=== PATIENT | female | born 1965 | race Caucasian/White ===

== ENCOUNTER 2021-08-27 19:54 | Inpatient (IN) ==
[2021-08-28] MEDS ORDERED: Melatonin 3 MG TABLET PO PRN (00:16)
[2021-08-28] MEDS ORDERED: Naloxone 0.4 MG/ML INJ IVP PRN (00:16)
[2021-08-28] MEDS ORDERED: D5% in Water 1,000 ML IVC PRN (00:18)
[2021-08-28] MEDS ORDERED: Dextrose 4 GM Chewable Tablets PO PRN ×2 (00:18)
[2021-08-28] MEDS ORDERED: *HR* Dextrose 50 % in Water (Syg) 50 ML SYRINGE IVP PRN (00:18)
[2021-08-28] MEDS ORDERED: Perflutren Lipid Microsphere 1.3 ML in 0.9 % Sodium Chloride 8.7 ML IVP PRN (01:21)
[2021-08-28 01:44] LABS: Hematocrit 31.2 % (35.3-44.9); Hemoglobin 9.8 g/dL (11.5-15.4); Mean Corpuscular HGB Conc 31.4 g/dL (31.6-35.5); Mean Corpuscular Hemoglobin 27.5 pg (28.0-33.3); Mean Corpuscular Volume 87.4 fL (83.0-100.0); Mean Platelet Volume 10.1 fL (9.4-12.4); Platelet Count 126 K/mcL (140-400); Red Blood Count 3.57 M/mcL (3.82-4.97); Red Cell Distribution Width 16.1 % (11.5-14.5); White Blood Count 5.3 K/mcL (4.3-11.1)
[2021-08-28 02:00] LABS: Albumin 3.6 g/dL (3.5-5.7); Albumin/Globulin Ratio 1.3 (1.1-2.2); Bilirubin,Total 0.3 mg/dL (0.3-1.0); Calcium 8.8 mg/dL (8.6-10.3); Globulin 2.7 g/dL (2.4-3.5); Magnesium 2.3 mg/dL (1.6-2.6); Potassium 5.2 mEq/L (3.5-5.1); Total Protein 6.3 g/dL (6.4-8.9)
[2021-08-28] MEDS ORDERED: Furosemide 40 MG/4 ML VIAL IVP ONE (07:33)
[2021-08-28] MEDS: Insulin LISPRO 300 UNITS/3 ML VIAL SUBQ SCH ×3 (07:44→16:33)
[2021-08-28] MEDS: Pregabalin 25 MG CAPSULE PO SCH ×3 (08:02→20:00)
[2021-08-28] MEDS: amLODIPine 5 MG TABLET PO SCH (08:02)
[2021-08-28] MEDS: Insulin DETEMIR 100 UNIT/ML X5UNITS SUBQ SCH ×2 (08:02→20:00)
[2021-08-28] MEDS ORDERED: SODIUM ZIRCONIUM CYCLOSILICATE 5 GM POWD.PACK PO SCH (09:00)
[2021-08-28 09:37] LABS: Uric Acid 7.6 mg/dL (2.3-7.6)
[2021-08-28 10:04] LABS: Hepatitis B Surface Antigen Nonreactive (Nonreactive)
[2021-08-28 10:33] LABS: Hepatitis B Core IgM Nonreactive (Nonreactive)
[2021-08-28 10:35] LABS: Hepatitis A Antibody IgM Nonreactive (Nonreactive); Hepatitis C Virus Antibody Nonreactive (Nonreactive)
[2021-08-28] MEDS: Albumin 25% 25gram/100mL 25 GM/100 ML IV.SOLN IVPB SCH ×2 (11:54→21:36)
[2021-08-28] MEDS: *HR* Heparin 5,000 UNIT/ML VIAL SQ SCH (16:36)
[2021-08-28] MEDS ORDERED: Insulin LISPRO 300 UNITS/3 ML VIAL SUBQ SCH (21:00)
[2021-08-29] MEDS ORDERED: Acetaminophen 325 MG TABLET PO ONE (00:27)
[2021-08-29] MEDS: Albumin 25% 25gram/100mL 25 GM/100 ML IV.SOLN IVPB SCH ×3 (03:30→21:00)
[2021-08-29 03:31] LABS: Basophils % 0.3 %; Eosinophils # 0.1 K/mcL (0.0-0.6); Eosinophils % 1.4 %; Hematocrit 28.7 % (35.3-44.9); Hemoglobin 8.9 g/dL (11.5-15.4); Immature Granulocytes % 0.3 % (0-4); Lymphocytes % 15.7 %; Mean Corpuscular Hemoglobin 26.8 pg (28.0-33.3); Mean Corpuscular Volume 86.4 fL (83.0-100.0); Mean Platelet Volume 10.1 fL (9.4-12.4); Monocytes # 0.6 K/mcL (0.0-1.3); Monocytes % 9.3 %; Neutrophils # 4.7 K/mcL (1.6-8.9); Platelet Count 109 K/mcL (140-400); Red Blood Count 3.32 M/mcL (3.82-4.97); Red Cell Distribution Width 16.2 % (11.5-14.5); White Blood Count 6.4 K/mcL (4.3-11.1)
[2021-08-29 03:55] LABS: Calcium 8.7 mg/dL (8.6-10.3); Magnesium 1.9 mg/dL (1.6-2.6); Phosphorous 5.1 mg/dL (2.7-4.5); Potassium 4.5 mEq/L (3.5-5.1)
[2021-08-29] MEDS: *HR* Heparin 5,000 UNIT/ML VIAL SQ SCH ×2 (05:23→17:53)
[2021-08-29] MEDS: Insulin LISPRO 300 UNITS/3 ML VIAL SUBQ SCH ×3 (07:18→16:10)
[2021-08-29] MEDS: amLODIPine 5 MG TABLET PO SCH (07:54)
[2021-08-29] MEDS: Pregabalin 25 MG CAPSULE PO SCH ×3 (07:54→20:59)
[2021-08-29] MEDS: Insulin DETEMIR 100 UNIT/ML X5UNITS SUBQ SCH ×2 (07:55→20:59)
[2021-08-29 09:18] LABS: Bacteria,Urine Few per hpf (None-Few); Bilirubin,Urine Negative (Negative); Blood,Urine Trace (Negative); Clarity,Urine Turbid (Clear); Color,Urine Light-Yellow (Yellow); Glucose,Urine (UA) 30 mg/dL (Normal); Ketones,Urine Negative (Negative); Leukocyte Esterase,Urine Large (Negative); Mucus,Urine Few per lpf (None-Few); Nitrite,Urine Negative (Negative); Protein,Urine 200 mg/dL (Neg-Trace); Specific Gravity,Urine 1.008 (1.010-1.025); Squamous Epithelial Cell,Urine Many per hpf (None-Few); Urobilinogen,Urine Normal (Normal); WBC,Urine TNTC per hpf (0-3)
[2021-08-29] MEDS: (Loxapine Succinate [Loxapine] 10 MG Capsule) PO SCH (09:38)
[2021-08-29] MEDS: Budesonide/Formoterol 80/4.5 1 PUFF INH IH SCH ×2 (10:48→20:10)
[2021-08-29] MEDS: cefTRIAXone 1,000 MG in 0.9 % Sodium Chloride 10 ML IVP SCH (17:52)
[2021-08-30 03:27] LABS: Basophils % 0.4 %; Eosinophils # 0.1 K/mcL (0.0-0.6); Eosinophils % 1.6 %; Hemoglobin 8.5 g/dL (11.5-15.4); Immature Granulocytes % 0.4 % (0-4); Lymphocytes # 0.7 K/mcL (0.6-4.6); Lymphocytes % 13.5 %; Mean Corpuscular HGB Conc 31.5 g/dL (31.6-35.5); Mean Corpuscular Volume 88.8 fL (83.0-100.0); Mean Platelet Volume 10.1 fL (9.4-12.4); Monocytes # 0.4 K/mcL (0.0-1.3); Monocytes % 7.7 %; Neutrophils # 4.2 K/mcL (1.6-8.9); Platelet Count 110 K/mcL (140-400); Red Blood Count 3.04 M/mcL (3.82-4.97); Segmented Neutrophils % 76.4 %; White Blood Count 5.5 K/mcL (4.3-11.1)
[2021-08-30 03:55] LABS: Calcium 8.8 mg/dL (8.6-10.3); Magnesium 1.8 mg/dL (1.6-2.6); Potassium 4.2 mEq/L (3.5-5.1)
[2021-08-30] MEDS: *HR* Heparin 5,000 UNIT/ML VIAL SQ SCH ×2 (05:06→18:08)
[2021-08-30] MEDS: Albumin 25% 25gram/100mL 25 GM/100 ML IV.SOLN IVPB SCH (05:06)
[2021-08-30] MEDS: Insulin LISPRO 300 UNITS/3 ML VIAL SUBQ SCH ×4 (07:28→16:58)
[2021-08-30] MEDS: Budesonide/Formoterol 80/4.5 1 PUFF INH IH SCH ×2 (07:52→20:14)
[2021-08-30] MEDS: cefTRIAXone 1,000 MG in 0.9 % Sodium Chloride 10 ML IVP SCH (08:23)
[2021-08-30] MEDS: Insulin DETEMIR 100 UNIT/ML X5UNITS SUBQ SCH ×2 (08:28→21:00)
[2021-08-30] MEDS: Pregabalin 25 MG CAPSULE PO SCH ×3 (08:28→21:00)
[2021-08-30] MEDS: amLODIPine 5 MG TABLET PO SCH (08:28)
[2021-08-30] MEDS: (Loxapine Succinate [Loxapine] 10 MG Capsule) PO SCH (08:37)
[2021-08-30] MEDS ORDERED: *HR* LORazepam 0.5 MG TABLET PO PRN (10:49)
[2021-08-30] MEDS: Perphenazine 2 MG TABLET PO SCH ×2 (12:56→21:00)
[2021-08-31 05:09] LABS: Basophils % 0.5 %; Eosinophils # 0.1 K/mcL (0.0-0.6); Eosinophils % 1.6 %; Hematocrit 28.8 % (35.3-44.9); Hemoglobin 9.2 g/dL (11.5-15.4); Immature Granulocytes % 0.2 % (0-4); Lymphocytes # 0.8 K/mcL (0.6-4.6); Lymphocytes % 14.4 %; Mean Corpuscular HGB Conc 31.9 g/dL (31.6-35.5); Mean Corpuscular Volume 87.5 fL (83.0-100.0); Mean Platelet Volume 9.9 fL (9.4-12.4); Monocytes # 0.5 K/mcL (0.0-1.3); Monocytes % 9.4 %; Neutrophils # 4.1 K/mcL (1.6-8.9); Platelet Count 100 K/mcL (140-400); Red Blood Count 3.29 M/mcL (3.82-4.97); Segmented Neutrophils % 73.9 %; White Blood Count 5.6 K/mcL (4.3-11.1)
[2021-08-31 05:12] LABS: INR 1.1; Prothrombin Time 11.9 Seconds (9.4-12.1)
[2021-08-31 05:18] LABS: Calcium 9.4 mg/dL (8.6-10.3); Potassium 4.4 mEq/L (3.5-5.1)
[2021-08-31] MEDS: *HR* Heparin 5,000 UNIT/ML VIAL SQ SCH ×2 (05:32→16:19)
[2021-08-31] MEDS: Insulin LISPRO 300 UNITS/3 ML VIAL SUBQ SCH ×3 (07:45→16:19)
[2021-08-31] MEDS: cefTRIAXone 1,000 MG in 0.9 % Sodium Chloride 10 ML IVP SCH (08:54)
[2021-08-31] MEDS: Insulin DETEMIR 100 UNIT/ML X5UNITS SUBQ SCH (08:54)
[2021-08-31] MEDS: amLODIPine 5 MG TABLET PO SCH (08:55)
[2021-08-31] MEDS: Pregabalin 25 MG CAPSULE PO SCH (08:55)
[2021-08-31] MEDS: Perphenazine 2 MG TABLET PO SCH (08:55)
[2021-08-31] MEDS: Budesonide/Formoterol 80/4.5 1 PUFF INH IH SCH (11:52)
[2021-08-31] MEDS ORDERED: Torsemide 20 MG TABLET PO SCH (13:15)
[2021-08-31 15:47] VITALS: BP 148/77; PULSE 81; TEMP 98; O2SAT 95
== END 2021-08-31 18:39 | disposition home or self-care (01) | DRG 682 ==
LOC: 2ANU → SUATTDRO 23:46
PROVIDERS: ADMIT Internal Medicine; ATTEND Hospitalist

== ENCOUNTER 2021-12-05 09:55 | Inpatient (IN) ==
[2021-12-05 11:35] LABS: Basophils % 0.4 %; Eosinophils # 0.1 K/mcL (0.0-0.6); Eosinophils % 1.5 %; Hematocrit 32.6 % (35.3-44.9); Hemoglobin 9.5 g/dL (11.5-15.4); Immature Granulocytes % 0.4 % (0-4); Immature Platelets 2.1 % (1.1-6.1); Lymphocytes # 0.6 K/mcL (0.6-4.6); Lymphocytes % 10.5 %; Mean Corpuscular HGB Conc 29.1 g/dL (31.6-35.5); Mean Corpuscular Hemoglobin 26.7 pg (28.0-33.3); Mean Corpuscular Volume 91.6 fL (83.0-100.0); Mean Platelet Volume 9.2 fL (9.4-12.4); Monocytes # 0.4 K/mcL (0.0-1.3); Monocytes % 8.1 %; Neutrophils # 4.2 K/mcL (1.6-8.9); Platelet Count 108 K/mcL (140-400); Red Blood Count 3.56 M/mcL (3.82-4.97); Red Cell Distribution Width 16.5 % (11.5-14.5); Segmented Neutrophils % 79.1 %; White Blood Count 5.3 K/mcL (4.3-11.1)
[2021-12-05] MEDS ORDERED: Furosemide 40 MG/4 ML VIAL IVP ONE (11:40)
[2021-12-05 11:57] LABS: Albumin 3.5 g/dL (3.5-5.7); Albumin/Globulin Ratio 1.3 (1.1-2.2); Bilirubin,Indirect 0.3 mg/dL (0.0-1.0); Bilirubin,Total 0.3 mg/dL (0.3-1.0); Calcium 8.2 mg/dL (8.6-10.3); Globulin 2.8 g/dL (2.4-3.5); Potassium 5.9 mEq/L (3.5-5.1); Total Protein 6.3 g/dL (6.4-8.9)
[2021-12-05] MEDS ORDERED: SODIUM ZIRCONIUM CYCLOSILICATE 5 GM POWD.PACK PO SCH (12:30)
[2021-12-05] MEDS ORDERED: Naloxone 0.4 MG/ML INJ IVP PRN (13:39)
[2021-12-05 13:41] LABS: Uric Acid 8.9 mg/dL (2.3-7.6)
[2021-12-05 13:46] LABS: Bilirubin,Urine Negative (Negative); Blood,Urine Negative (Negative); Clarity,Urine Clear (Clear); Color,Urine Colorless (Yellow); Glucose,Urine (UA) Normal (Normal); Ketones,Urine Negative (Negative); Leukocyte Esterase,Urine Moderate (Negative); Mucus,Urine Few per lpf (None-Few); Nitrite,Urine Negative (Negative); PH,Urine 6.5 pH Units (5.0-8.0); Protein,Urine 100 mg/dL (Neg-Trace); RBC,Urine 0-3 per hpf (0-3); Specific Gravity,Urine 1.008 (1.010-1.025); Urobilinogen,Urine Normal (Normal); WBC,Urine 30-50 per hpf (0-3)
[2021-12-05 13:48] LABS: Sodium, Urine 113.5 mEq/L
[2021-12-05] MEDS ORDERED: Chlorothiazide Sodium 500 MG VIAL IVP ONE (13:59)
[2021-12-05] MEDS ORDERED: *HR* Dextrose 50 % in Water (Syg) 50 ML SYRINGE IVP PRN (14:39)
[2021-12-05] MEDS ORDERED: D5% in Water 1,000 ML IVC PRN (14:39)
[2021-12-05] MEDS ORDERED: Dextrose Gel 15 GM/37.5 ML TUBE PO PRN ×2 (14:39)
[2021-12-05 15:06] LABS: VBG HCO3 23 mEq/L (21-27); VBG PCO2 49 mmHg (41-51); VBG PH 7.28 pH Units (7.32-7.42); VBG PO2 102 mmHg (25-50)
[2021-12-05] MEDS: Insulin LISPRO 300 UNITS/3 ML VIAL SUBQ SCH (18:47)
[2021-12-05] MEDS: Insulin DETEMIR 100 UNIT/ML X5UNITS SUBQ SCH (20:25)
[2021-12-05] MEDS: Furosemide 40 MG/4 ML VIAL IVP SCH (20:49)
[2021-12-05] MEDS: *HR* Heparin 5,000 UNIT/ML VIAL SQ SCH (20:49)
[2021-12-06 04:11] LABS: Basophils % 0.4 %
[2021-12-06 04:13] LABS: Eosinophils # 0.1 K/mcL (0.0-0.6); Eosinophils % 1.5 %; Hemoglobin 8.1 g/dL (11.5-15.4); Immature Granulocytes % 0.2 % (0-4); Immature Platelets 2.4 % (1.1-6.1); Lymphocytes # 0.7 K/mcL (0.6-4.6); Mean Corpuscular HGB Conc 28.9 g/dL (31.6-35.5); Mean Corpuscular Hemoglobin 26.5 pg (28.0-33.3); Mean Corpuscular Volume 91.5 fL (83.0-100.0); Monocytes # 0.5 K/mcL (0.0-1.3); Monocytes % 9.2 %; Platelet Count 108 K/mcL (140-400); Red Blood Count 3.06 M/mcL (3.82-4.97); Red Cell Distribution Width 16.3 % (11.5-14.5); Segmented Neutrophils % 76.7 %; White Blood Count 5.4 K/mcL (4.3-11.1)
[2021-12-06 04:30] LABS: Calcium 8.1 mg/dL (8.6-10.3); Potassium 5.2 mEq/L (3.5-5.1)
[2021-12-06 04:44] LABS: Neutrophils # 4.1 K/mcL (1.6-8.9)
[2021-12-06 05:11] LABS: Hepatitis B Surface Antigen Nonreactive (Nonreactive)
[2021-12-06 05:39] LABS: Hepatitis C Virus Antibody Nonreactive (Nonreactive)
[2021-12-06 05:40] LABS: Hepatitis B Core IgM Nonreactive (Nonreactive)
[2021-12-06 05:42] LABS: Hepatitis A Antibody IgM Nonreactive (Nonreactive)
[2021-12-06] MEDS: *HR* Heparin 5,000 UNIT/ML VIAL SQ SCH ×2 (06:39→16:55)
[2021-12-06] MEDS: Insulin LISPRO 300 UNITS/3 ML VIAL SUBQ SCH ×3 (07:19→16:44)
[2021-12-06] MEDS ORDERED: 0.9 % Sodium Chloride 250 ML IVC PRN (07:47)
[2021-12-06] MEDS ORDERED: 0.9 % Sodium Chloride 2,000 ML PRIME SCH (08:00)
[2021-12-06] MEDS ORDERED: Heparin 1,000 UNITS/500 mL 500 ML ONE (08:47)
[2021-12-06] MEDS ORDERED: Lidocaine/EPI 1:100k 1% 50 ML VIAL ONE (08:47)
[2021-12-06 09:31] LABS: INR 1.1; Prothrombin Time 12.7 Seconds (9.4-12.1)
[2021-12-06] MEDS ORDERED: *HR* Heparin 5,000 UNIT/ML VIAL ONE (09:45)
[2021-12-06] MEDS: Furosemide 40 MG/4 ML VIAL IVP SCH ×2 (11:13→20:33)
[2021-12-06] MEDS: hydrALAZINE 10 MG TABLET PO SCH ×3 (11:13→20:33)
[2021-12-06] MEDS: Primidone 50 MG TABLET PO SCH (11:13)
[2021-12-06] MEDS: Budesonide/Formoterol 80/4.5 1 PUFF INH IH SCH ×2 (11:21→19:58)
[2021-12-06] MEDS ORDERED: *HR* Heparin 10,000 UNIT/10 ML VIAL IV PRN (15:48)
[2021-12-06] MEDS: Piperacillin/Tazobactam 3.375 GM in 0.9 % Sodium Chloride Mini Bag 100 ML IVPB SCH (17:53)
[2021-12-06] MEDS: Insulin DETEMIR 100 UNIT/ML X5UNITS SUBQ SCH (21:56)
[2021-12-07 04:50] LABS: Red Cell Distribution Width 15.9 % (11.5-14.5)
[2021-12-07 04:52] LABS: Hematocrit 27.5 % (35.3-44.9); Immature Platelets 2.9 % (1.1-6.1); Mean Corpuscular HGB Conc 29.1 g/dL (31.6-35.5); Mean Corpuscular Hemoglobin 26.6 pg (28.0-33.3); Mean Corpuscular Volume 91.4 fL (83.0-100.0); Mean Platelet Volume 9.6 fL (9.4-12.4); Red Blood Count 3.01 M/mcL (3.82-4.97); White Blood Count 5.3 K/mcL (4.3-11.1)
[2021-12-07 05:15] LABS: Calcium 7.9 mg/dL (8.6-10.3); Potassium 4.6 mEq/L (3.5-5.1)
[2021-12-07] MEDS: Piperacillin/Tazobactam 3.375 GM in 0.9 % Sodium Chloride Mini Bag 100 ML IVPB SCH ×2 (06:46→17:56)
[2021-12-07] MEDS: *HR* Heparin 5,000 UNIT/ML VIAL SQ SCH ×2 (06:46→17:56)
[2021-12-07] MEDS: Acetaminophen 325 MG TABLET PO PRN ×2 (06:49→20:17)
[2021-12-07] MEDS ORDERED: 0.9 % Sodium Chloride 250 ML IVC PRN (07:14)
[2021-12-07] MEDS: Budesonide/Formoterol 80/4.5 1 PUFF INH IH SCH ×2 (07:34→20:54)
[2021-12-07] MEDS: Insulin LISPRO 300 UNITS/3 ML VIAL SUBQ SCH ×3 (08:54→16:04)
[2021-12-07] MEDS ORDERED: *HR* Heparin 10,000 UNIT/10 ML VIAL IV PRN (12:01)
[2021-12-07] MEDS ORDERED: Lidocaine -MPF 2% 5 ML VIAL ONE (13:37)
[2021-12-07] MEDS ORDERED: *HR* FentaNYL (PF) 100 MCG/2 ML VIAL ONE (13:40)
[2021-12-07] MEDS ORDERED: Lidocaine/EPI 1:100k 1% 50 ML VIAL ONE (13:46)
[2021-12-07] MEDS: hydrALAZINE 10 MG TABLET PO SCH ×3 (15:20→20:18)
[2021-12-07] MEDS: Primidone 50 MG TABLET PO SCH (15:45)
[2021-12-07] MEDS: allopurinoL 100 MG TABLET PO SCH (15:45)
[2021-12-07] MEDS: Furosemide 40 MG/4 ML VIAL IVP SCH ×2 (15:46→20:18)
[2021-12-07] MEDS: Insulin DETEMIR 100 UNIT/ML X5UNITS SUBQ SCH (20:18)
[2021-12-08 03:45] LABS: Calcium 8.4 mg/dL (8.6-10.3); Potassium 4.3 mEq/L (3.5-5.1)
[2021-12-08] MEDS: *HR* Heparin 5,000 UNIT/ML VIAL SQ SCH ×2 (05:36→17:10)
[2021-12-08] MEDS: Piperacillin/Tazobactam 3.375 GM in 0.9 % Sodium Chloride Mini Bag 100 ML IVPB SCH ×2 (05:37→21:34)
[2021-12-08] MEDS: allopurinoL 100 MG TABLET PO SCH (07:50)
[2021-12-08] MEDS: Insulin LISPRO 300 UNITS/3 ML VIAL SUBQ SCH ×3 (07:50→16:36)
[2021-12-08] MEDS: hydrALAZINE 10 MG TABLET PO SCH ×3 (07:50→21:34)
[2021-12-08] MEDS: Budesonide/Formoterol 80/4.5 1 PUFF INH IH SCH ×2 (07:50→20:23)
[2021-12-08] MEDS: Primidone 50 MG TABLET PO SCH (07:50)
[2021-12-08] MEDS: Furosemide 40 MG/4 ML VIAL IVP SCH ×2 (07:51→21:33)
[2021-12-08] MEDS ORDERED: 0.9 % Sodium Chloride 250 ML IVC PRN (07:53)
[2021-12-08] MEDS ORDERED: *HR* Heparin 10,000 UNIT/10 ML VIAL IV PRN (07:53)
[2021-12-08 15:04] LABS: Adenovirus F 40/41 PCR Not detected (Not detect); Astrovirus PCR Not detected (Not detect); C.difficile Toxin A/B Gene PCR Not detected (Not detect); Campylobacter by PCR Not detected (Not detect); Cryptosporidium by PCR Not detected (Not detect); Cyclospora cayetanensis PCR Not detected (Not detect); Entamoeba histolytica PCR Not detected (Not detect); Enteroaggregative E.coli(EAEC) Not detected (Not detect); Enteropathogenic E.coli(EPEC) Not detected (Not detect); Enterotoxigenic E.coli (ETEC) Not detected (Not detect); Giardia lamblia PCR Not detected (Not detect); Norovirus GI/GII PCR Not detected (Not detect); Plesiomonas shigelloides PCR Not detected (Not detect); Rotavirus A PCR Not detected (Not detect); Salmonella PCR Not detected (Not detect); Sapovirus PCR Not detected (Not detect); Shig/EnteroinvasiveE coli EIEC Not detected (Not detect); Shigalike tox-prod E coli STEC Not detected (Not detect); Vibrio PCR Not detected (Not detect); Vibrio cholerae PCR Not detected (Not detect); Yersinia enterocolitica PCR Not detected (Not detect)
[2021-12-08] MEDS: Insulin DETEMIR 100 UNIT/ML X5UNITS SUBQ SCH (21:51)
[2021-12-09 05:50] LABS: Calcium 8.4 mg/dL (8.6-10.3); Potassium 4.1 mEq/L (3.5-5.1)
[2021-12-09] MEDS: *HR* Heparin 5,000 UNIT/ML VIAL SQ SCH ×2 (06:17→17:01)
[2021-12-09] MEDS: Insulin LISPRO 300 UNITS/3 ML VIAL SUBQ SCH ×3 (07:00→16:59)
[2021-12-09] MEDS ORDERED: Vancomycin 1,750 MG in 0.9 % Sodium Chloride 250 ML IVPB SCH (08:00)
[2021-12-09] MEDS ORDERED: Vancomycin 1,500 MG/265 ML IV.SOLN IVPB ONE (09:00)
[2021-12-09] MEDS: Budesonide/Formoterol 80/4.5 1 PUFF INH IH SCH ×2 (09:26→20:27)
[2021-12-09] MEDS: Furosemide 40 MG/4 ML VIAL IVP SCH ×2 (10:37→22:41)
[2021-12-09] MEDS: allopurinoL 100 MG TABLET PO SCH (10:38)
[2021-12-09] MEDS: Primidone 50 MG TABLET PO SCH (10:38)
[2021-12-09] MEDS: hydrALAZINE 10 MG TABLET PO SCH ×3 (10:38→22:41)
[2021-12-09] MEDS: *HR* OxyCODONE Immed Rel 5 MG TABLET PO PRN ×2 (12:43→22:41)
[2021-12-09] MEDS: Acetaminophen 325 MG TABLET PO PRN (12:44)
[2021-12-09] MEDS: Piperacillin/Tazobactam 3.375 GM in 0.9 % Sodium Chloride Mini Bag 100 ML IVPB SCH ×2 (12:47→13:36)
[2021-12-09] MEDS: Insulin DETEMIR 100 UNIT/ML X5UNITS SUBQ SCH (22:42)
[2021-12-10] MEDS: Piperacillin/Tazobactam 3.375 GM in 0.9 % Sodium Chloride Mini Bag 100 ML IVPB SCH ×2 (03:14→13:59)
[2021-12-10] MEDS: *HR* Heparin 5,000 UNIT/ML VIAL SQ SCH ×2 (05:40→16:31)
[2021-12-10 06:16] LABS: Hematocrit 27.3 % (35.3-44.9); Hemoglobin 8.1 g/dL (11.5-15.4); Mean Corpuscular HGB Conc 29.7 g/dL (31.6-35.5); Mean Corpuscular Hemoglobin 26.6 pg (28.0-33.3); Mean Corpuscular Volume 89.8 fL (83.0-100.0); Mean Platelet Volume 10.6 fL (9.4-12.4); Red Blood Count 3.04 M/mcL (3.82-4.97); Red Cell Distribution Width 15.9 % (11.5-14.5); White Blood Count 7.5 K/mcL (4.3-11.1)
[2021-12-10 06:46] LABS: Calcium 8.4 mg/dL (8.6-10.3); Potassium 3.9 mEq/L (3.5-5.1)
[2021-12-10] MEDS: Insulin LISPRO 300 UNITS/3 ML VIAL SUBQ SCH ×3 (07:37→16:28)
[2021-12-10] MEDS: Budesonide/Formoterol 80/4.5 1 PUFF INH IH SCH ×2 (07:43→20:31)
[2021-12-10] MEDS: hydrALAZINE 10 MG TABLET PO SCH ×3 (08:05→20:40)
[2021-12-10] MEDS: Furosemide 40 MG/4 ML VIAL IVP SCH (08:06)
[2021-12-10] MEDS: *HR* OxyCODONE Immed Rel 5 MG TABLET PO PRN ×2 (08:06→16:31)
[2021-12-10] MEDS: allopurinoL 100 MG TABLET PO SCH (08:06)
[2021-12-10] MEDS: Primidone 50 MG TABLET PO SCH (08:08)
[2021-12-10] MEDS ORDERED: Lidocaine/EPI 1:100k 1% 50 ML VIAL ONE (10:29)
[2021-12-10] MEDS ORDERED: Heparin 1,000 UNITS/500 mL 500 ML ONE (10:29)
[2021-12-10] MEDS ORDERED: *HR* FentaNYL (PF) 100 MCG/2 ML VIAL ONE (12:08)
[2021-12-10] MEDS ORDERED: *HR* FentaNYL (PF) 100 MCG/2 ML VIAL EP ONE (12:08)
[2021-12-10] MEDS ORDERED: 0.9 % Sodium Chloride 500 ML ONE (12:09)
[2021-12-10] MEDS ORDERED: *HR* Heparin 5,000 UNIT/ML VIAL ONE (12:17)
[2021-12-10] MEDS: Insulin DETEMIR 100 UNIT/ML X5UNITS SUBQ SCH (20:40)
[2021-12-10] MEDS ORDERED: 0.9 % Sodium Chloride 250 ML IVC PRN (20:54)
[2021-12-11] MEDS ORDERED: *HR* Heparin 10,000 UNIT/10 ML VIAL IV PRN (00:01)
[2021-12-11] MEDS: Piperacillin/Tazobactam 3.375 GM in 0.9 % Sodium Chloride Mini Bag 100 ML IVPB SCH (02:18)
[2021-12-11] MEDS: *HR* Heparin 5,000 UNIT/ML VIAL SQ SCH ×2 (05:51→17:23)
[2021-12-11] MEDS: Insulin LISPRO 300 UNITS/3 ML VIAL SUBQ SCH ×3 (07:41→17:08)
[2021-12-11] MEDS: hydrALAZINE 10 MG TABLET PO SCH ×3 (07:46→20:44)
[2021-12-11] MEDS: allopurinoL 100 MG TABLET PO SCH (07:47)
[2021-12-11] MEDS: Primidone 50 MG TABLET PO SCH (07:47)
[2021-12-11] MEDS: Furosemide 40 MG TABLET PO SCH (07:47)
[2021-12-11] MEDS: *HR* OxyCODONE Immed Rel 5 MG TABLET PO PRN ×2 (07:51→16:14)
[2021-12-11] MEDS: Budesonide/Formoterol 80/4.5 1 PUFF INH IH SCH ×2 (08:01→20:31)
[2021-12-11 16:45] LABS: Calcium 8.4 mg/dL (8.6-10.3); Potassium 3.6 mEq/L (3.5-5.1)
[2021-12-11] MEDS: Doxycycline 100 MG CAPSULE PO SCH (17:23)
[2021-12-11] MEDS: Acetaminophen 325 MG TABLET PO PRN (20:44)
[2021-12-11] MEDS: Insulin DETEMIR 100 UNIT/ML X5UNITS SUBQ SCH (20:44)
[2021-12-12] MEDS: *HR* OxyCODONE Immed Rel 5 MG TABLET PO PRN ×3 (00:22→20:33)
[2021-12-12] MEDS: Doxycycline 100 MG CAPSULE PO SCH ×2 (05:25→18:38)
[2021-12-12] MEDS: *HR* Heparin 5,000 UNIT/ML VIAL SQ SCH ×2 (05:25→18:38)
[2021-12-12] MEDS: Insulin LISPRO 300 UNITS/3 ML VIAL SUBQ SCH ×3 (08:02→17:16)
[2021-12-12] MEDS: Budesonide/Formoterol 80/4.5 1 PUFF INH IH SCH ×2 (08:09→19:45)
[2021-12-12] MEDS: Furosemide 40 MG TABLET PO SCH (09:10)
[2021-12-12] MEDS: allopurinoL 100 MG TABLET PO SCH (09:11)
[2021-12-12] MEDS: Primidone 50 MG TABLET PO SCH (09:11)
[2021-12-12] MEDS: hydrALAZINE 10 MG TABLET PO SCH ×3 (09:11→20:33)
[2021-12-12] MEDS: Ondansetron 4 MG/2 ML VIAL IVP PRN (11:49)
[2021-12-12] MEDS ORDERED: *HR* Heparin 10,000 UNIT/10 ML VIAL IV PRN ×2 (12:58)
[2021-12-12] MEDS ORDERED: 0.9 % Sodium Chloride 250 ML IVC PRN (12:58)
[2021-12-12] MEDS ORDERED: 0.9 % Sodium Chloride 2,000 ML PRIME SCH (13:00)
[2021-12-12 18:45] LABS: Calcium 8.2 mg/dL (8.6-10.3); Potassium 3.8 mEq/L (3.5-5.1)
[2021-12-12] MEDS: Insulin DETEMIR 100 UNIT/ML X5UNITS SUBQ SCH (20:33)
[2021-12-12] MEDS: Acetaminophen 325 MG TABLET PO PRN (22:29)
[2021-12-13] MEDS ORDERED: Prochlorperazine 10 MG/2 ML VIAL IVP ONE (00:51)
[2021-12-13 02:45] LABS: Basophils % 0.2 %; Eosinophils # 0.1 K/mcL (0.0-0.6); Eosinophils % 1.4 %; Hematocrit 27.6 % (35.3-44.9); Hemoglobin 8.3 g/dL (11.5-15.4); Immature Granulocytes % 0.4 % (0-4); Immature Platelets 5.6 % (1.1-6.1); Lymphocytes # 0.5 K/mcL (0.6-4.6); Lymphocytes % 9.7 %; Mean Corpuscular HGB Conc 30.1 g/dL (31.6-35.5); Mean Corpuscular Hemoglobin 26.9 pg (28.0-33.3); Mean Corpuscular Volume 89.3 fL (83.0-100.0); Mean Platelet Volume 10.7 fL (9.4-12.4); Monocytes # 0.7 K/mcL (0.0-1.3); Monocytes % 12.7 %; Neutrophils # 4.2 K/mcL (1.6-8.9); Red Blood Count 3.09 M/mcL (3.82-4.97); Red Cell Distribution Width 15.7 % (11.5-14.5); Segmented Neutrophils % 75.6 %; White Blood Count 5.6 K/mcL (4.3-11.1)
[2021-12-13 02:50] LABS: Platelet Count 84 K/mcL (140-400)
[2021-12-13 03:06] LABS: Calcium 8.2 mg/dL (8.6-10.3)
[2021-12-13] MEDS: *HR* Heparin 5,000 UNIT/ML VIAL SQ SCH ×2 (05:18→16:38)
[2021-12-13] MEDS: Doxycycline 100 MG CAPSULE PO SCH ×2 (05:18→16:38)
[2021-12-13] MEDS: Budesonide/Formoterol 80/4.5 1 PUFF INH IH SCH ×2 (07:37→19:41)
[2021-12-13] MEDS: Insulin LISPRO 300 UNITS/3 ML VIAL SUBQ SCH ×3 (08:05→16:32)
[2021-12-13] MEDS: allopurinoL 100 MG TABLET PO SCH (08:13)
[2021-12-13] MEDS: hydrALAZINE 10 MG TABLET PO SCH ×3 (08:13→20:44)
[2021-12-13] MEDS: Furosemide 40 MG TABLET PO SCH (08:13)
[2021-12-13] MEDS: Primidone 50 MG TABLET PO SCH (08:13)
[2021-12-13] MEDS: *HR* OxyCODONE Immed Rel 5 MG TABLET PO PRN ×2 (10:09→20:44)
[2021-12-13] MEDS: Insulin DETEMIR 100 UNIT/ML X5UNITS SUBQ SCH (20:44)
[2021-12-14 04:35] LABS: Calcium 8.4 mg/dL (8.6-10.3); Potassium 4.9 mEq/L (3.5-5.1)
[2021-12-14] MEDS: *HR* Heparin 5,000 UNIT/ML VIAL SQ SCH ×2 (04:49→18:01)
[2021-12-14] MEDS: Doxycycline 100 MG CAPSULE PO SCH ×2 (04:49→18:00)
[2021-12-14] MEDS: *HR* OxyCODONE Immed Rel 5 MG TABLET PO PRN ×2 (04:54→15:07)
[2021-12-14] MEDS ORDERED: *HR* Heparin 10,000 UNIT/10 ML VIAL IV PRN (07:34)
[2021-12-14] MEDS ORDERED: 0.9 % Sodium Chloride 250 ML IVC PRN (07:34)
[2021-12-14] MEDS: Insulin LISPRO 300 UNITS/3 ML VIAL SUBQ SCH ×3 (07:56→16:44)
[2021-12-14] MEDS: Furosemide 40 MG TABLET PO SCH (09:13)
[2021-12-14] MEDS: Primidone 50 MG TABLET PO SCH (09:13)
[2021-12-14] MEDS: hydrALAZINE 10 MG TABLET PO SCH ×3 (09:13→20:40)
[2021-12-14] MEDS: allopurinoL 100 MG TABLET PO SCH (09:13)
[2021-12-14] MEDS: Budesonide/Formoterol 80/4.5 1 PUFF INH IH SCH ×2 (10:19→20:04)
[2021-12-14] MEDS ORDERED: 0.9 % Sodium Chloride 250 ML ONE (14:52)
[2021-12-14] MEDS: Insulin DETEMIR 100 UNIT/ML X5UNITS SUBQ SCH (20:40)
[2021-12-15] MEDS: Doxycycline 100 MG CAPSULE PO SCH ×2 (05:58→17:22)
[2021-12-15] MEDS: *HR* Heparin 5,000 UNIT/ML VIAL SQ SCH ×2 (05:58→17:22)
[2021-12-15] MEDS: Insulin LISPRO 300 UNITS/3 ML VIAL SUBQ SCH ×3 (07:38→16:25)
[2021-12-15] MEDS: hydrALAZINE 10 MG TABLET PO SCH ×3 (08:07→20:25)
[2021-12-15] MEDS: *HR* OxyCODONE Immed Rel 5 MG TABLET PO PRN ×2 (08:07→16:25)
[2021-12-15] MEDS: Primidone 50 MG TABLET PO SCH (08:07)
[2021-12-15] MEDS: allopurinoL 100 MG TABLET PO SCH (08:07)
[2021-12-15] MEDS: Furosemide 40 MG TABLET PO SCH (08:07)
[2021-12-15] MEDS: Budesonide/Formoterol 80/4.5 1 PUFF INH IH SCH ×2 (09:36→20:36)
[2021-12-15] MEDS: Insulin DETEMIR 100 UNIT/ML X5UNITS SUBQ SCH (20:25)
[2021-12-16] MEDS: *HR* OxyCODONE Immed Rel 5 MG TABLET PO PRN ×2 (02:05→21:00)
[2021-12-16 03:51] LABS: Basophils % 0.6 %; Eosinophils # 0.1 K/mcL (0.0-0.6); Eosinophils % 2.1 %; Hematocrit 29.3 % (35.3-44.9); Hemoglobin 8.6 g/dL (11.5-15.4); Immature Granulocytes % 1.3 % (0-4); Lymphocytes # 0.8 K/mcL (0.6-4.6); Lymphocytes % 16.3 %; Mean Corpuscular HGB Conc 29.4 g/dL (31.6-35.5); Mean Corpuscular Hemoglobin 26.6 pg (28.0-33.3); Mean Corpuscular Volume 90.7 fL (83.0-100.0); Mean Platelet Volume 10.4 fL (9.4-12.4); Monocytes # 0.5 K/mcL (0.0-1.3); Monocytes % 9.9 %; Neutrophils # 3.3 K/mcL (1.6-8.9); Platelet Count 105 K/mcL (140-400); Red Blood Count 3.23 M/mcL (3.82-4.97); Red Cell Distribution Width 15.9 % (11.5-14.5); Segmented Neutrophils % 69.8 %; White Blood Count 4.7 K/mcL (4.3-11.1)
[2021-12-16 03:52] LABS: Calcium 7.9 mg/dL (8.6-10.3)
[2021-12-16 04:19] LABS: Platelet Estimate Decreased (Normal)
[2021-12-16] MEDS: *HR* Heparin 5,000 UNIT/ML VIAL SQ SCH ×2 (05:40→17:08)
[2021-12-16] MEDS: Doxycycline 100 MG CAPSULE PO SCH ×2 (05:40→17:08)
[2021-12-16] MEDS: Insulin LISPRO 300 UNITS/3 ML VIAL SUBQ SCH ×3 (07:32→16:05)
[2021-12-16] MEDS: Budesonide/Formoterol 80/4.5 1 PUFF INH IH SCH ×2 (07:39→19:48)
[2021-12-16] MEDS: hydrALAZINE 10 MG TABLET PO SCH ×3 (08:01→21:00)
[2021-12-16] MEDS: Furosemide 40 MG TABLET PO SCH ×4 (08:01→21:00)
[2021-12-16] MEDS: allopurinoL 100 MG TABLET PO SCH (08:01)
[2021-12-16] MEDS: Primidone 50 MG TABLET PO SCH (08:01)
[2021-12-16] MEDS: Insulin DETEMIR 100 UNIT/ML X5UNITS SUBQ SCH (21:00)
[2021-12-17] MEDS: Doxycycline 100 MG CAPSULE PO SCH ×2 (06:18→17:14)
[2021-12-17] MEDS: *HR* Heparin 5,000 UNIT/ML VIAL SQ SCH ×2 (06:18→17:14)
[2021-12-17] MEDS: Insulin LISPRO 300 UNITS/3 ML VIAL SUBQ SCH ×3 (07:57→16:26)
[2021-12-17] MEDS: allopurinoL 100 MG TABLET PO SCH (08:00)
[2021-12-17] MEDS: Furosemide 40 MG TABLET PO SCH ×2 (08:00→20:13)
[2021-12-17] MEDS: Primidone 50 MG TABLET PO SCH (08:00)
[2021-12-17] MEDS: *HR* OxyCODONE Immed Rel 5 MG TABLET PO PRN ×2 (08:02→20:12)
[2021-12-17] MEDS ORDERED: 0.9 % Sodium Chloride 250 ML IVC PRN (08:22)
[2021-12-17] MEDS ORDERED: *HR* Heparin 10,000 UNIT/10 ML VIAL IV PRN (08:34)
[2021-12-17] MEDS: Budesonide/Formoterol 80/4.5 1 PUFF INH IH SCH ×2 (09:16→20:33)
[2021-12-17] MEDS: hydrALAZINE 10 MG TABLET PO SCH ×3 (10:47→20:13)
[2021-12-17 11:48] LABS: Basophils % 0.5 %; Eosinophils # 0.1 K/mcL (0.0-0.6); Eosinophils % 1.8 %; Hematocrit 26.8 % (35.3-44.9); Hemoglobin 8.2 g/dL (11.5-15.4); Immature Granulocytes % 0.3 % (0-4); Lymphocytes # 0.7 K/mcL (0.6-4.6); Lymphocytes % 17.1 %; Mean Corpuscular HGB Conc 30.6 g/dL (31.6-35.5); Mean Corpuscular Hemoglobin 26.7 pg (28.0-33.3); Mean Corpuscular Volume 87.3 fL (83.0-100.0); Mean Platelet Volume 10.5 fL (9.4-12.4); Monocytes # 0.3 K/mcL (0.0-1.3); Monocytes % 7.8 %; Neutrophils # 2.8 K/mcL (1.6-8.9); Platelet Count 133 K/mcL (140-400); Red Blood Count 3.07 M/mcL (3.82-4.97); Red Cell Distribution Width 15.9 % (11.5-14.5); Segmented Neutrophils % 72.5 %; White Blood Count 3.9 K/mcL (4.3-11.1)
[2021-12-17 12:10] LABS: Calcium 8.4 mg/dL (8.6-10.3); Potassium 3.8 mEq/L (3.5-5.1)
[2021-12-17] MEDS: Insulin DETEMIR 100 UNIT/ML X5UNITS SUBQ SCH (20:12)
[2021-12-18] MEDS: *HR* Heparin 5,000 UNIT/ML VIAL SQ SCH ×2 (05:44→17:07)
[2021-12-18] MEDS: Doxycycline 100 MG CAPSULE PO SCH ×2 (05:44→17:07)
[2021-12-18] MEDS: Insulin LISPRO 300 UNITS/3 ML VIAL SUBQ SCH ×3 (07:13→16:28)
[2021-12-18] MEDS: Budesonide/Formoterol 80/4.5 1 PUFF INH IH SCH ×2 (07:35→20:28)
[2021-12-18] MEDS: hydrALAZINE 10 MG TABLET PO SCH ×3 (07:51→21:36)
[2021-12-18] MEDS: Furosemide 40 MG TABLET PO SCH ×2 (07:51→21:36)
[2021-12-18] MEDS: Primidone 50 MG TABLET PO SCH (07:51)
[2021-12-18] MEDS: allopurinoL 100 MG TABLET PO SCH (07:52)
[2021-12-18] MEDS: *HR* OxyCODONE Immed Rel 5 MG TABLET PO PRN (14:25)
[2021-12-18] MEDS: Insulin DETEMIR 100 UNIT/ML X5UNITS SUBQ SCH (21:35)
[2021-12-19 02:18] LABS: Calcium 9.1 mg/dL (8.6-10.3); Potassium 4.4 mEq/L (3.5-5.1)
[2021-12-19] MEDS: *HR* Heparin 5,000 UNIT/ML VIAL SQ SCH ×2 (05:59→16:59)
[2021-12-19] MEDS: Doxycycline 100 MG CAPSULE PO SCH ×2 (05:59→16:59)
[2021-12-19] MEDS: Insulin LISPRO 300 UNITS/3 ML VIAL SUBQ SCH ×3 (07:28→16:47)
[2021-12-19] MEDS ORDERED: 0.9 % Sodium Chloride 250 ML IVC PRN ×2 (08:04→11:32)
[2021-12-19] MEDS ORDERED: *HR* Heparin 10,000 UNIT/10 ML VIAL IV PRN (08:04)
[2021-12-19] MEDS: Furosemide 40 MG TABLET PO SCH ×2 (08:21→21:27)
[2021-12-19] MEDS: allopurinoL 100 MG TABLET PO SCH (08:21)
[2021-12-19] MEDS: Primidone 50 MG TABLET PO SCH (08:21)
[2021-12-19] MEDS: hydrALAZINE 10 MG TABLET PO SCH ×3 (08:24→21:27)
[2021-12-19] MEDS: Budesonide/Formoterol 80/4.5 1 PUFF INH IH SCH ×2 (09:59→22:50)
[2021-12-19] MEDS ORDERED: Albumin 25% 25gram/100mL 25 GM/100 ML IV.SOLN IVPB PRN (11:32)
[2021-12-19] MEDS ORDERED: Albumin 25% 25gram/100mL 25 GM/100 ML IV.SOLN ONE (11:34)
[2021-12-19] MEDS: Insulin DETEMIR 100 UNIT/ML X5UNITS SUBQ SCH (21:27)
[2021-12-20] MEDS: *HR* Heparin 5,000 UNIT/ML VIAL SQ SCH ×2 (06:12→16:55)
[2021-12-20] MEDS: Doxycycline 100 MG CAPSULE PO SCH ×2 (06:12→16:55)
[2021-12-20] MEDS: Budesonide/Formoterol 80/4.5 1 PUFF INH IH SCH ×2 (07:20→20:12)
[2021-12-20 08:32] LABS: Calcium 9.2 mg/dL (8.6-10.3); Potassium 4.7 mEq/L (3.5-5.1)
[2021-12-20] MEDS: Insulin LISPRO 300 UNITS/3 ML VIAL SUBQ SCH ×3 (10:12→16:50)
[2021-12-20] MEDS: Primidone 50 MG TABLET PO SCH (10:26)
[2021-12-20] MEDS: allopurinoL 100 MG TABLET PO SCH (10:26)
[2021-12-20] MEDS: Furosemide 40 MG TABLET PO SCH ×2 (10:26→21:14)
[2021-12-20] MEDS: hydrALAZINE 10 MG TABLET PO SCH ×3 (10:27→21:14)
[2021-12-20] MEDS: *HR* OxyCODONE Immed Rel 5 MG TABLET PO PRN ×2 (13:01→21:14)
[2021-12-20] MEDS: Insulin DETEMIR 100 UNIT/ML X5UNITS SUBQ SCH (21:14)
[2021-12-21 02:54] LABS: Calcium 9.4 mg/dL (8.6-10.3); Potassium 4.4 mEq/L (3.5-5.1)
[2021-12-21] MEDS: Doxycycline 100 MG CAPSULE PO SCH (05:15)
[2021-12-21] MEDS: *HR* Heparin 5,000 UNIT/ML VIAL SQ SCH ×2 (05:15→20:09)
[2021-12-21] MEDS ORDERED: *HR* Heparin 10,000 UNIT/10 ML VIAL IV PRN (07:44)
[2021-12-21] MEDS ORDERED: 0.9 % Sodium Chloride 250 ML IVC PRN (07:44)
[2021-12-21] MEDS: Insulin LISPRO 300 UNITS/3 ML VIAL SUBQ SCH ×3 (09:02→17:18)
[2021-12-21] MEDS: hydrALAZINE 10 MG TABLET PO SCH ×3 (09:07→20:08)
[2021-12-21] MEDS: Furosemide 40 MG TABLET PO SCH ×2 (09:08→20:09)
[2021-12-21] MEDS: allopurinoL 100 MG TABLET PO SCH (09:08)
[2021-12-21] MEDS: Primidone 50 MG TABLET PO SCH (09:08)
[2021-12-21] MEDS: *HR* OxyCODONE Immed Rel 5 MG TABLET PO PRN ×2 (09:13→20:08)
[2021-12-21] MEDS: Budesonide/Formoterol 80/4.5 1 PUFF INH IH SCH ×2 (09:39→20:34)
[2021-12-21] MEDS: Insulin DETEMIR 100 UNIT/ML X5UNITS SUBQ SCH (20:09)
[2021-12-22 02:10] LABS: Calcium 9.4 mg/dL (8.6-10.3); Potassium 4.6 mEq/L (3.5-5.1)
[2021-12-22] MEDS: *HR* Heparin 5,000 UNIT/ML VIAL SQ SCH ×2 (06:03→17:34)
[2021-12-22] MEDS: Insulin LISPRO 300 UNITS/3 ML VIAL SUBQ SCH ×3 (07:36→16:54)
[2021-12-22] MEDS: Budesonide/Formoterol 80/4.5 1 PUFF INH IH SCH ×2 (07:41→22:30)
[2021-12-22] MEDS: Furosemide 40 MG TABLET PO SCH ×2 (09:05→19:37)
[2021-12-22] MEDS: hydrALAZINE 10 MG TABLET PO SCH ×3 (09:05→19:37)
[2021-12-22] MEDS: *HR* OxyCODONE Immed Rel 5 MG TABLET PO PRN (17:40)
[2021-12-22] MEDS: Primidone 50 MG TABLET PO SCH (19:37)
[2021-12-22] MEDS: Insulin DETEMIR 100 UNIT/ML X5UNITS SUBQ SCH (19:38)
[2021-12-23] MEDS: *HR* Heparin 5,000 UNIT/ML VIAL SQ SCH ×2 (05:35→17:26)
[2021-12-23] MEDS: Insulin LISPRO 300 UNITS/3 ML VIAL SUBQ SCH ×3 (06:58→16:06)
[2021-12-23 07:45] LABS: Basophils % 0.4 %; Eosinophils # 0.1 K/mcL (0.0-0.6); Eosinophils % 1.2 %; Hematocrit 30.9 % (35.3-44.9); Hemoglobin 9.3 g/dL (11.5-15.4); Immature Granulocytes % 0.2 % (0-4); Lymphocytes # 0.6 K/mcL (0.6-4.6); Lymphocytes % 10.5 %; Mean Corpuscular HGB Conc 30.1 g/dL (31.6-35.5); Mean Corpuscular Hemoglobin 26.6 pg (28.0-33.3); Mean Corpuscular Volume 88.3 fL (83.0-100.0); Mean Platelet Volume 9.7 fL (9.4-12.4); Monocytes # 0.6 K/mcL (0.0-1.3); Monocytes % 10.3 %; Neutrophils # 4.4 K/mcL (1.6-8.9); Platelet Count 141 K/mcL (140-400); Red Cell Distribution Width 15.7 % (11.5-14.5); Segmented Neutrophils % 77.4 %; White Blood Count 5.7 K/mcL (4.3-11.1)
[2021-12-23 07:58] LABS: Potassium 4.6 mEq/L (3.5-5.1)
[2021-12-23] MEDS: hydrALAZINE 10 MG TABLET PO SCH ×3 (08:25→20:17)
[2021-12-23] MEDS: Furosemide 40 MG TABLET PO SCH ×2 (08:25→20:17)
[2021-12-23] MEDS: *HR* OxyCODONE Immed Rel 5 MG TABLET PO PRN (08:31)
[2021-12-23] MEDS: Budesonide/Formoterol 80/4.5 1 PUFF INH IH SCH ×2 (10:24→19:57)
[2021-12-23] MEDS: Primidone 50 MG TABLET PO SCH (20:17)
[2021-12-23] MEDS: Insulin DETEMIR 100 UNIT/ML X5UNITS SUBQ SCH (20:18)
[2021-12-23] MEDS: Ondansetron 4 MG/2 ML VIAL IVP PRN (20:23)
[2021-12-24 03:09] LABS: Basophils % 0.4 %; Eosinophils % 0.5 %; Hematocrit 31.7 % (35.3-44.9); Hemoglobin 9.6 g/dL (11.5-15.4); Immature Granulocytes % 0.4 % (0-4); Lymphocytes # 0.4 K/mcL (0.6-4.6); Lymphocytes % 6.7 %; Mean Corpuscular HGB Conc 30.3 g/dL (31.6-35.5); Mean Corpuscular Hemoglobin 26.5 pg (28.0-33.3); Mean Corpuscular Volume 87.6 fL (83.0-100.0); Monocytes # 0.7 K/mcL (0.0-1.3); Monocytes % 11.4 %; Neutrophils # 4.6 K/mcL (1.6-8.9); Platelet Count 134 K/mcL (140-400); Red Blood Count 3.62 M/mcL (3.82-4.97); Red Cell Distribution Width 15.6 % (11.5-14.5); Segmented Neutrophils % 80.6 %; White Blood Count 5.7 K/mcL (4.3-11.1)
[2021-12-24 03:25] LABS: Calcium 9.1 mg/dL (8.6-10.3); Potassium 4.8 mEq/L (3.5-5.1)
[2021-12-24] MEDS: *HR* Heparin 5,000 UNIT/ML VIAL SQ SCH ×2 (05:32→18:02)
[2021-12-24] MEDS: Budesonide/Formoterol 80/4.5 1 PUFF INH IH SCH ×2 (07:28→20:09)
[2021-12-24] MEDS: Insulin LISPRO 300 UNITS/3 ML VIAL SUBQ SCH ×3 (07:36→16:52)
[2021-12-24] MEDS: Furosemide 40 MG TABLET PO SCH ×2 (07:48→22:14)
[2021-12-24] MEDS: hydrALAZINE 10 MG TABLET PO SCH ×3 (08:19→22:14)
[2021-12-24] MEDS ORDERED: 0.9 % Sodium Chloride 250 ML IVC PRN (08:54)
[2021-12-24] MEDS ORDERED: *HR* Heparin 10,000 UNIT/10 ML VIAL IV PRN (08:54)
[2021-12-24] MEDS: Acetaminophen 325 MG TABLET PO PRN (16:58)
[2021-12-24] MEDS: Insulin DETEMIR 100 UNIT/ML X5UNITS SUBQ SCH (22:17)
[2021-12-24] MEDS: allopurinoL 100 MG TABLET PO SCH (22:20)
[2021-12-24] MEDS: Primidone 50 MG TABLET PO SCH (22:20)
[2021-12-25] MEDS: *HR* Heparin 5,000 UNIT/ML VIAL SQ SCH ×2 (06:30→17:55)
[2021-12-25] MEDS: Budesonide/Formoterol 80/4.5 1 PUFF INH IH SCH ×2 (07:33→19:57)
[2021-12-25] MEDS: Insulin LISPRO 300 UNITS/3 ML VIAL SUBQ SCH ×3 (08:11→17:07)
[2021-12-25] MEDS: Furosemide 40 MG TABLET PO SCH ×2 (11:12→21:23)
[2021-12-25] MEDS: hydrALAZINE 10 MG TABLET PO SCH ×3 (11:12→21:23)
[2021-12-25 12:46] LABS: Adenovirus Not Detected (Not Detect); Bordetella Pertussis Not Detected (Not Detect); Chlamydophila pneumoniae Not Detected (Not Detect); Coronavirus 229E Not Detected (Not Detect); Coronavirus HKU1 Not Detected (Not Detect); Coronavirus NL63 Not Detected (Not Detect); Coronavirus OC43 Not Detected (Not Detect); Human Metapneumovirus Not Detected (Not Detect); Human Rhinovirus/Enterovirus Not Detected (Not Detect); Influenza A Subtype 2009 H1 Not Detected (Not Detect); Influenza B Not Detected (Not Detect); Mycoplasma pneumoniae Not Detected (Not Detect); Parainfluenza Virus 1 Not Detected (Not Detect); Parainfluenza Virus 2 Not Detected (Not Detect); Parainfluenza Virus 3 Not Detected (Not Detect); Parainfluenza Virus 4 Not Detected (Not Detect); Respiratory Syncytial Virus Not Detected (Not Detect)
[2021-12-25 12:48] LABS: SARS-CoV-2 DETECTED (Not Detect)
[2021-12-25] MEDS: Primidone 50 MG TABLET PO SCH (21:23)
[2021-12-25] MEDS: Insulin DETEMIR 100 UNIT/ML X5UNITS SUBQ SCH (21:28)
[2021-12-26 04:54] LABS: Basophils % 0.4 %; Eosinophils % 0.6 %; Hematocrit 32.6 % (35.3-44.9); Hemoglobin 9.8 g/dL (11.5-15.4); Immature Granulocytes % 0.4 % (0-4); Lymphocytes # 0.6 K/mcL (0.6-4.6); Mean Corpuscular HGB Conc 30.1 g/dL (31.6-35.5); Mean Corpuscular Hemoglobin 26.3 pg (28.0-33.3); Mean Corpuscular Volume 87.4 fL (83.0-100.0); Mean Platelet Volume 10.1 fL (9.4-12.4); Monocytes # 0.7 K/mcL (0.0-1.3); Monocytes % 14.9 %; Neutrophils # 3.5 K/mcL (1.6-8.9); Platelet Count 104 K/mcL (140-400); Red Blood Count 3.73 M/mcL (3.82-4.97); Red Cell Distribution Width 15.5 % (11.5-14.5); Segmented Neutrophils % 71.7 %; White Blood Count 4.8 K/mcL (4.3-11.1)
[2021-12-26 05:06] LABS: Calcium 9.1 mg/dL (8.6-10.3)
[2021-12-26] MEDS: *HR* Heparin 5,000 UNIT/ML VIAL SQ SCH ×2 (05:53→17:54)
[2021-12-26] MEDS: Budesonide/Formoterol 80/4.5 1 PUFF INH IH SCH ×2 (07:17→20:08)
[2021-12-26] MEDS: Insulin LISPRO 300 UNITS/3 ML VIAL SUBQ SCH ×3 (07:53→17:48)
[2021-12-26] MEDS: hydrALAZINE 10 MG TABLET PO SCH ×4 (08:05→20:40)
[2021-12-26] MEDS: Furosemide 40 MG TABLET PO SCH ×2 (08:05→20:40)
[2021-12-26] MEDS ORDERED: 0.9 % Sodium Chloride 250 ML IVC PRN (08:59)
[2021-12-26] MEDS: Acetaminophen 325 MG TABLET PO PRN (17:20)
[2021-12-26] MEDS ORDERED: Bisacodyl 10 MG RECTAL SUPPOSITORY RC PRN (18:49)
[2021-12-26] MEDS: Primidone 50 MG TABLET PO SCH (20:40)
[2021-12-26] MEDS: Insulin DETEMIR 100 UNIT/ML X5UNITS SUBQ SCH (20:40)
[2021-12-26] MEDS: allopurinoL 100 MG TABLET PO SCH (20:43)
[2021-12-27 02:26] LABS: Magnesium 2.1 mg/dL (1.6-2.6); Phosphorous 3.9 mg/dL (2.7-4.5)
[2021-12-27] MEDS: *HR* Heparin 5,000 UNIT/ML VIAL SQ SCH ×2 (05:05→18:35)
[2021-12-27] MEDS: Acetaminophen 325 MG TABLET PO PRN ×2 (05:06→20:47)
[2021-12-27] MEDS: Budesonide/Formoterol 80/4.5 1 PUFF INH IH SCH ×2 (07:58→20:19)
[2021-12-27] MEDS: Furosemide 40 MG TABLET PO SCH ×2 (09:45→20:44)
[2021-12-27] MEDS: Insulin LISPRO 300 UNITS/3 ML VIAL SUBQ SCH ×3 (09:45→18:29)
[2021-12-27] MEDS: hydrALAZINE 10 MG TABLET PO SCH ×4 (09:45→20:45)
[2021-12-27] MEDS: Insulin DETEMIR 100 UNIT/ML X5UNITS SUBQ SCH (20:30)
[2021-12-27] MEDS: Primidone 50 MG TABLET PO SCH (20:45)
[2021-12-28 04:49] LABS: Basophils % 0.4 %; Eosinophils % 0.7 %; Hematocrit 28.9 % (35.3-44.9); Hemoglobin 8.7 g/dL (11.5-15.4); Immature Granulocytes % 0.2 % (0-4); Immature Platelets 5.5 % (1.1-6.1); Lymphocytes # 0.8 K/mcL (0.6-4.6); Lymphocytes % 14.6 %; Mean Corpuscular HGB Conc 30.1 g/dL (31.6-35.5); Mean Corpuscular Hemoglobin 25.9 pg (28.0-33.3); Mean Platelet Volume 11.9 fL (9.4-12.4); Monocytes # 0.5 K/mcL (0.0-1.3); Monocytes % 8.7 %; Platelet Count 101 K/mcL (140-400); Red Blood Count 3.36 M/mcL (3.82-4.97); Red Cell Distribution Width 15.2 % (11.5-14.5); Segmented Neutrophils % 75.4 %; White Blood Count 5.6 K/mcL (4.3-11.1)
[2021-12-28 04:51] LABS: Neutrophils # 4.2 K/mcL (1.6-8.9)
[2021-12-28 05:09] LABS: Calcium 8.7 mg/dL (8.6-10.3); Potassium 3.7 mEq/L (3.5-5.1)
[2021-12-28] MEDS: *HR* Heparin 5,000 UNIT/ML VIAL SQ SCH ×2 (05:26→17:57)
[2021-12-28] MEDS: Budesonide/Formoterol 80/4.5 1 PUFF INH IH SCH ×2 (07:46→22:00)
[2021-12-28] MEDS: Acetaminophen 325 MG TABLET PO PRN ×2 (07:47→21:30)
[2021-12-28] MEDS: hydrALAZINE 10 MG TABLET PO SCH ×3 (07:48→21:30)
[2021-12-28] MEDS: Insulin LISPRO 300 UNITS/3 ML VIAL SUBQ SCH ×3 (07:48→17:57)
[2021-12-28] MEDS: Furosemide 40 MG TABLET PO SCH ×2 (07:49→21:29)
[2021-12-28] MEDS ORDERED: 0.9 % Sodium Chloride 250 ML IVC PRN ×2 (08:51→13:43)
[2021-12-28] MEDS ORDERED: *HR* Heparin 10,000 UNIT/10 ML VIAL IV PRN (08:51)
[2021-12-28] MEDS: Albumin 25% 25gram/100mL 25 GM/100 ML IV.SOLN IVPB PRN (16:36)
[2021-12-28] MEDS: Insulin DETEMIR 100 UNIT/ML X5UNITS SUBQ SCH (21:25)
[2021-12-28] MEDS: Primidone 50 MG TABLET PO SCH (21:30)
[2021-12-28] MEDS: allopurinoL 100 MG TABLET PO SCH (21:33)
[2021-12-29] MEDS: *HR* Heparin 5,000 UNIT/ML VIAL SQ SCH ×2 (05:07→17:19)
[2021-12-29] MEDS: Budesonide/Formoterol 80/4.5 1 PUFF INH IH SCH ×2 (08:13→22:27)
[2021-12-29] MEDS: Insulin LISPRO 300 UNITS/3 ML VIAL SUBQ SCH ×3 (08:30→17:18)
[2021-12-29] MEDS: Furosemide 40 MG TABLET PO SCH ×2 (10:26→20:57)
[2021-12-29] MEDS: hydrALAZINE 10 MG TABLET PO SCH ×3 (10:27→20:57)
[2021-12-29] MEDS: Primidone 50 MG TABLET PO SCH (20:57)
[2021-12-29] MEDS: Insulin DETEMIR 100 UNIT/ML X5UNITS SUBQ SCH (20:57)
[2021-12-29] MEDS: Acetaminophen 325 MG TABLET PO PRN (20:57)
[2021-12-30] MEDS: *HR* Heparin 5,000 UNIT/ML VIAL SQ SCH ×2 (05:37→18:08)
[2021-12-30] MEDS: Budesonide/Formoterol 80/4.5 1 PUFF INH IH SCH ×2 (08:04→20:25)
[2021-12-30] MEDS: Insulin LISPRO 300 UNITS/3 ML VIAL SUBQ SCH ×3 (09:37→16:24)
[2021-12-30] MEDS: hydrALAZINE 10 MG TABLET PO SCH ×3 (09:38→20:48)
[2021-12-30] MEDS: Furosemide 40 MG TABLET PO SCH ×2 (09:38→20:47)
[2021-12-30] MEDS: Primidone 50 MG TABLET PO SCH (20:48)
[2021-12-30] MEDS: Insulin DETEMIR 100 UNIT/ML X5UNITS SUBQ SCH (20:51)
[2021-12-31] MEDS: *HR* Heparin 5,000 UNIT/ML VIAL SQ SCH ×2 (05:23→17:45)
[2021-12-31] MEDS: Budesonide/Formoterol 80/4.5 1 PUFF INH IH SCH ×2 (07:43→19:31)
[2021-12-31] MEDS ORDERED: 0.9 % Sodium Chloride 250 ML IVC PRN (08:03)
[2021-12-31] MEDS ORDERED: *HR* Heparin 10,000 UNIT/10 ML VIAL IV PRN (08:03)
[2021-12-31] MEDS: Insulin LISPRO 300 UNITS/3 ML VIAL SUBQ SCH ×3 (08:40→16:41)
[2021-12-31] MEDS: hydrALAZINE 10 MG TABLET PO SCH ×3 (08:43→20:21)
[2021-12-31] MEDS: Furosemide 40 MG TABLET PO SCH ×2 (08:48→20:20)
[2021-12-31] MEDS: Acetaminophen 325 MG TABLET PO PRN ×2 (09:55→17:48)
[2021-12-31 10:58] LABS: Potassium 3.6 mEq/L (3.5-5.1)
[2021-12-31] MEDS: Primidone 50 MG TABLET PO SCH (20:21)
[2021-12-31] MEDS: Insulin DETEMIR 100 UNIT/ML X5UNITS SUBQ SCH (21:18)
[2021-12-31] MEDS: allopurinoL 100 MG TABLET PO SCH (22:51)
[2022-01-01] MEDS: *HR* Heparin 5,000 UNIT/ML VIAL SQ SCH ×2 (05:27→17:37)
[2022-01-01] MEDS: Insulin LISPRO 300 UNITS/3 ML VIAL SUBQ SCH ×3 (08:55→16:49)
[2022-01-01] MEDS: Acetaminophen 325 MG TABLET PO PRN (09:05)
[2022-01-01] MEDS: hydrALAZINE 10 MG TABLET PO SCH ×3 (09:06→20:15)
[2022-01-01] MEDS: Furosemide 40 MG TABLET PO SCH ×2 (09:06→20:15)
[2022-01-01] MEDS: Budesonide/Formoterol 80/4.5 1 PUFF INH IH SCH ×2 (09:35→20:20)
[2022-01-01] MEDS: Primidone 50 MG TABLET PO SCH (20:15)
[2022-01-01] MEDS: Insulin DETEMIR 100 UNIT/ML X5UNITS SUBQ SCH (20:17)
[2022-01-02] MEDS: *HR* Heparin 5,000 UNIT/ML VIAL SQ SCH ×2 (06:06→16:42)
[2022-01-02 06:44] LABS: Calcium 9.7 mg/dL (8.6-10.3); Potassium 3.9 mEq/L (3.5-5.1)
[2022-01-02] MEDS: hydrALAZINE 10 MG TABLET PO SCH ×3 (07:23→20:44)
[2022-01-02] MEDS ORDERED: 0.9 % Sodium Chloride 250 ML IVC PRN (07:50)
[2022-01-02] MEDS ORDERED: *HR* Heparin 10,000 UNIT/10 ML VIAL IV PRN (07:50)
[2022-01-02] MEDS: Insulin LISPRO 300 UNITS/3 ML VIAL SUBQ SCH ×3 (08:22→16:11)
[2022-01-02] MEDS: Furosemide 40 MG TABLET PO SCH ×2 (10:04→20:41)
[2022-01-02] MEDS: Acetaminophen 325 MG TABLET PO PRN (10:04)
[2022-01-02] MEDS: Budesonide/Formoterol 80/4.5 1 PUFF INH IH SCH ×2 (10:26→19:50)
[2022-01-02] MEDS: Albumin 25% 25gram/100mL 25 GM/100 ML IV.SOLN IVPB PRN (10:42)
[2022-01-02] MEDS: allopurinoL 100 MG TABLET PO SCH (20:41)
[2022-01-02] MEDS: Insulin DETEMIR 100 UNIT/ML X5UNITS SUBQ SCH (20:41)
[2022-01-02] MEDS: Primidone 50 MG TABLET PO SCH (20:41)
[2022-01-03] MEDS: *HR* Heparin 5,000 UNIT/ML VIAL SQ SCH ×2 (06:18→16:35)
[2022-01-03] MEDS: Budesonide/Formoterol 80/4.5 1 PUFF INH IH SCH ×2 (07:35→19:50)
[2022-01-03] MEDS: Insulin LISPRO 300 UNITS/3 ML VIAL SUBQ SCH ×3 (08:41→16:38)
[2022-01-03] MEDS: hydrALAZINE 10 MG TABLET PO SCH ×3 (08:45→21:08)
[2022-01-03] MEDS: Furosemide 40 MG TABLET PO SCH ×2 (08:45→21:08)
[2022-01-03] MEDS: Primidone 50 MG TABLET PO SCH (21:08)
[2022-01-03] MEDS: Insulin DETEMIR 100 UNIT/ML X5UNITS SUBQ SCH (21:08)
[2022-01-04 02:59] LABS: Calcium 9.5 mg/dL (8.6-10.3); Magnesium 1.9 mg/dL (1.6-2.6); Phosphorous 4.5 mg/dL (2.7-4.5); Potassium 3.9 mEq/L (3.5-5.1)
[2022-01-04 03:52] VITALS: PULSE 75
[2022-01-04] MEDS: *HR* Heparin 5,000 UNIT/ML VIAL SQ SCH (05:48)
[2022-01-04] MEDS: Budesonide/Formoterol 80/4.5 1 PUFF INH IH SCH (08:03)
[2022-01-04 08:06] VITALS: O2SAT 96
[2022-01-04] MEDS: Insulin LISPRO 300 UNITS/3 ML VIAL SUBQ SCH ×2 (08:08→12:36)
[2022-01-04] MEDS: Furosemide 40 MG TABLET PO SCH (08:14)
[2022-01-04] MEDS: hydrALAZINE 10 MG TABLET PO SCH ×2 (08:15→15:48)
[2022-01-04] MEDS ORDERED: *HR* Heparin 10,000 UNIT/10 ML VIAL IV PRN (08:22)
[2022-01-04] MEDS ORDERED: 0.9 % Sodium Chloride 250 ML IVC PRN (08:22)
[2022-01-04 13:28] VITALS: BP 135/81; TEMP 98.4
== END 2022-01-04 17:00 | DRG 987 ==
LOC: 2ANU 09:55 → EMEROOARM 09:55 → 2ANU 18:50 → SUATTDRO 12-06 10:33 → 2ANU 12-25 14:04 → 2NENU 12-26 13:31
PROVIDERS: ADMIT Internal Medicine; ATTEND Internal Medicine